=== PATIENT | male | born 1955 | race Caucasian/White ===

== ENCOUNTER → 2018-03-02 | Outpatient (CLI) | payer OTHER ==
[~2018-03-02] MED LIST: ACYC-114 PO; CEFD300C37 PO; FENO48TA5 PO; FLUO5DRO3 PO; FLUT9.9S INH; LOVA40TA2 PO; OMEP-110 PO
== END | disposition home or self-care (01) ==
LOC: CVU 06:48
PROVIDERS: ATTEND Internal Medicine
DX: I08.3 Combined rheumatic disorders of mitral, aortic and tricuspid valves (principal); E78.1 Pure hyperglyceridemia; J45.909 Unspecified asthma, uncomplicated; C83.99 Non-follicular (diffuse) lymphoma, unspecified, extranodal and solid organ sites; M25.519 Pain in unspecified shoulder; J32.9 Chronic sinusitis, unspecified; J11.1 Influenza due to unidentified influenza virus with other respiratory manifestations; J18.1 Lobar pneumonia, unspecified organism; J40 Bronchitis, not specified as acute or chronic; R05 Cough; Z85.72 Personal history of non-Hodgkin lymphomas; Z85.6 Personal history of leukemia
CPT/HCPCS: 93306

== ENCOUNTER → 2018-10-08 | Outpatient (CLI) | payer OTHER | END | disposition home or self-care (01) | LOC: CFH 11:26 | PROVIDERS: ATTEND Nurse Practitioner Primary Care | DX: J18.9 Pneumonia, unspecified organism (principal) | CPT/HCPCS: 71046 ==

== ENCOUNTER → 2019-03-11 | Outpatient (CLI) | payer OTHER | END | disposition home or self-care (01) | LOC: CFH 15:56 | PROVIDERS: ATTEND Nurse Practitioner Primary Care | DX: R50.9 Fever, unspecified (principal) | CPT/HCPCS: 71046 ==

== ENCOUNTER → 2021-04-06 | Outpatient (CLI) | payer OTHER ==
[~2021-04-06] MED LIST changes: -ACYC-114 PO; +ACYC-40 PO; +FENO48TA10 PO; -FENO48TA5 PO; +OMNIPAQUE 350 MG/ML, 100ML BOTTLE ONE
== END | disposition home or self-care (01) ==
LOC: CFH 08:43
PROVIDERS: ATTEND Internal Medicine Hematology & Oncology
DX: C91.10 Chronic lymphocytic leukemia of B-cell type not having achieved remission (principal); D80.1 Nonfamilial hypogammaglobulinemia; R59.1 Generalized enlarged lymph nodes
CPT/HCPCS: 70491; 71260; 74177; 82565; Q9967